=== PATIENT | male | born 1985 | race Caucasian/White ===

== ENCOUNTER 2020-02-08 22:57 | Emergency (ER) | payer MEDICAID ==
[~2020-02-08] VITALS: Ht 162.6 cm; Wt 64.0 kg
[2020-02-08 23:14] VITALS: BP 166/82
[2020-02-09] MEDS ORDERED: KETOROLAC 30MG/ML VIAL IM ONE
== END 2020-02-09 01:06 | disposition home or self-care (01) ==
LOC: ER 22:57
DX: S39.012A Strain of muscle, fascia and tendon of lower back, initial encounter (principal); S46.812A Strain of other muscles, fascia and tendons at shoulder and upper arm level, left arm, initial encounter; S46.811A Strain of other muscles, fascia and tendons at shoulder and upper arm level, right arm, initial encounter; V49.59XA Passenger injured in collision with other motor vehicles in traffic accident, initial encounter; Y93.89 Activity, other specified; Y92.488 Other paved roadways as the place of occurrence of the external cause; R03.0 Elevated blood-pressure reading, without diagnosis of hypertension; E78.00 Pure hypercholesterolemia, unspecified
CPT/HCPCS: 72100; 82962; 96372; 99283; J1885